=== PATIENT | male | born 1960 | race Caucasian/White ===

== ENCOUNTER 2018-03-04 16:20 | Emergency (ER) | payer OTHER, BC ==
[~2018-03-04] VITALS: Ht 190.5 cm; Wt 127.0 kg
[~2018-03-04 16:20] MED LIST: DICLOFENAC75 MG PO; FLEXERIL5 MG PO; FLONASE NASAL50 MCG; HYDROCO/APAP1 TA8 PO; LIDODERM5 % EX; LIDODERM5 % TD; LORCET10/650 PO; LORTAB 10-325 M1 TAB PO; LORTAB 1010 MG PO; LORTAB PO; LOTRISONE EX; MEDROL4 M1 PO; OMEPRAZOLE40 MG PO; PERCOCET 5/325M1 TAB PO; PERCOCET1 TA2 PO; PRILOSEC40 MG PO; TIZANIDINE HCL4 MG PO; TIZANIDINE4 MG PO
[2018-03-04] MEDS ORDERED: KEFLEX500 M1 PO (17:07)
[2018-03-04 17:15] VITALS: BP 168/74
== END 2018-03-04 17:15 | disposition home or self-care (01) | DRG 914 ==
LOC: ED 16:20
PROC: 0HQFXZZ Repair Right Hand Skin, External Approach (ICD-10-PCS; principal; 2018-03-04)
DX: S61.021A Laceration with foreign body of right thumb without damage to nail, initial encounter (principal); W45.8XXA Other foreign body or object entering through skin, initial encounter; Y92.89 Other specified places as the place of occurrence of the external cause; Y99.0 Civilian activity done for income or pay

== ENCOUNTER 2019-04-11 10:31 | Emergency (ER) | payer OTHER ==
[~2019-04-11] VITALS: Ht 190.5 cm; Wt 118.0 kg
[~2019-04-11 10:31] MED LIST changes: +KEFLEX500 M1 PO
[2019-04-11] MEDS ORDERED: GABAPENTIN100 MG PO (10:56)
[2019-04-11] MEDS ORDERED: ROPINIROLE HCL0.5 MG PO (10:57)
[2019-04-11] MEDS ORDERED: TIZANIDINE HCL2 M1 PO (10:57)
[2019-04-11] MEDS ORDERED: KEFLEX500 M1 PO (11:49)
[2019-04-11] MEDS ORDERED: BACTROBAN TOP (11:49)
[2019-04-11 12:28] VITALS: BP 124/68
== END 2019-04-11 12:35 | disposition home or self-care (01) | DRG 563 ==
LOC: ED 10:31
DX: S62.632A Displaced fracture of distal phalanx of right middle finger, initial encounter for closed fracture (principal); S62.634A Displaced fracture of distal phalanx of right ring finger, initial encounter for closed fracture; S61.312A Laceration without foreign body of right middle finger with damage to nail, initial encounter; S61.314A Laceration without foreign body of right ring finger with damage to nail, initial encounter; G62.9 Polyneuropathy, unspecified; F17.210 Nicotine dependence, cigarettes, uncomplicated; W23.0XXA Caught, crushed, jammed, or pinched between moving objects, initial encounter; Y93.89 Activity, other specified; Y99.0 Civilian activity done for income or pay

== ENCOUNTER 2019-09-06 11:00 | Emergency (ER) | payer BC ==
[~2019-09-06] VITALS: Ht 190.5 cm; Wt 113.0 kg
[~2019-09-06 11:00] MED LIST changes: +BACTROBAN TOP; +GABAPENTIN100 MG PO; +ROPINIROLE HCL0.5 MG PO; +TIZANIDINE HCL2 M1 PO
[2019-09-06 12:17] LABS: IMMATURE GRANULOCYTES 0.5 % (0.0-5.0); MEAN CORPUSCULAR HGB 20.2 pG CALC (26.0-32.0); MEAN CORPUSCULAR HGB CONC 28.2 g/L CALC (32.0-36.0); NEUT# 8.3 thou/uL (1.82-7.42); RED BLOOD COUNT 2.97 mill/uL (4.70-6.10)
[2019-09-06 12:30] LABS: HEMATOCRIT 21.3 % (39.0-50.0); MEAN CELL VOLUME 71.7 fL CALC (80.0-100.0)
[2019-09-06 12:36] LABS: ALBUMIN 2.7 g/dL (3.2-5.0); AMYLASE < 30 u/l (30-110); ANION GAP 13 (6-22 (CALC)); BUN 10 mg/dL (9-20); BUN/CREATININE RATIO 21 (12-20 (CALC)); CARBON DIOXIDE 25 mmol/l (22-30); CHLORIDE 99 mmol/l (95-108); CREATININE 0.5 mg/dL (0.7-1.3); GFR > 60 ML/MIN (>=60 (CALC)); GFR FOR AFR.AMER. > 60 ML/MIN (>=60 (CALC)); LIPASE 43 u/l (23-300); TOTAL PROTEIN 6.1 g/dL (6.3-8.2)
[2019-09-06 12:37] LABS: ALKALINE PHOSPHATASE 194 u/l (38-126); BILIRUBIN, TOTAL 0.8 mg/dL (0.0-1.4); SGOT/AST 87 u/l (17-59); SODIUM 132 mmol/l (137-146)
[2019-09-06] MEDS ORDERED: METFORMIN500 MG PO (13:19)
[2019-09-06 14:55] VITALS: BP 96/55
[2019-09-06 15:15] VITALS: BP 100/55
[2019-09-06 15:51] LABS: URINE BILIRUBIN - DIPSTICK NEGATIVE (NEGATIVE); URINE BLOOD DIPSTICK NEGATIVE (NEGATIVE); URINE COLOR DK. YELLOW; URINE GLUCOSE - DIPSTICK NEGATIVE (NEGATIVE); URINE KETONE NEGATIVE (NEGATIVE); URINE LEUK ESTERASE NEGATIVE (NEGATIVE); URINE NITRITE - DIPSTICK NEGATIVE (Negative); URINE PROTEIN - DIPSTICK NEGATIVE (NEG-TRACE); URINE SPECIFIC GRAVITY <=1.005
== END 2019-09-06 15:38 | disposition short-term general hospital (02) | DRG 812 ==
LOC: ED 11:00
DX: D64.9 Anemia, unspecified (principal); C78.7 Secondary malignant neoplasm of liver and intrahepatic bile duct; D47.3 Essential (hemorrhagic) thrombocythemia
CPT/HCPCS: P9016; Q9967

== ENCOUNTER 2021-03-22 13:57 | Emergency (ER) | payer BC ==
[~2021-03-22] VITALS: Ht 190.5 cm; Wt 115.0 kg
[~2021-03-22 13:57] MED LIST changes: +METFORMIN500 MG PO
[2021-03-22 15:23] LABS: ACT PARTIAL THROMBO TIME 30.5 SECONDS (20.0-32.5); ALBUMIN 2.7 g/dL (3.2-5.0); ALKALINE PHOSPHATASE 83 u/l (38-126); ANION GAP 12 (6-22 (CALC)); BILIRUBIN, TOTAL 1.5 mg/dL (0.0-1.4); BUN 25 mg/dL (8-23); BUN/CREATININE RATIO 44 (12-20 (CALC)); CARBON DIOXIDE 21 mmol/l (22-30); CHLORIDE 97 mmol/l (95-108); CREATININE 0.6 mg/dL (0.7-1.3); GFR > 60 ML/MIN (>=60 (CALC)); GFR FOR AFR.AMER. > 60 ML/MIN (>=60 (CALC)); INTERNATIONAL NORMALIZED RATIO 1.2 RATIO (0.7-1.3); LIPASE 103 u/l (23-300); POTASSIUM 4.7 mmol/l (3.5-5.1); PROTHROMBIN TIME 12.3 SECONDS (9.0-12.5); SGOT/AST 24 u/l (19-48); SODIUM 125 mmol/l (137-146); TOTAL PROTEIN 5.8 g/dL (6.3-8.2)
[2021-03-22 15:27] LABS: D-DIMER 2.24 mg/L (0.19-0.60)
[2021-03-22 15:28] LABS: HEMOGLOBIN 8.3 g/dl (14.0-18.0); IMMATURE GRANULOCYTES 6.9 % (0.0-5.0); MEAN CORPUSCULAR HGB 24.3 pG CALC (26.0-32.0); MEAN CORPUSCULAR HGB CONC 28.6 g/dL CAL (32.0-36.0); NEUT# 0.06 thou/uL (1.82-7.42); RED BLOOD COUNT 3.41 mill/uL (4.70-6.10); RED CELL DISTRI WIDTH 20.4 % (11.5-15.5)
[2021-03-22 15:32] LABS: URINE BILIRUBIN - DIPSTICK NEGATIVE (NEGATIVE); URINE BLOOD DIPSTICK NEGATIVE (NEGATIVE); URINE COLOR YELLOW; URINE GLUCOSE - DIPSTICK >=1000 mg/dL (NEGATIVE); URINE KETONE NEGATIVE (NEGATIVE); URINE LEUK ESTERASE NEGATIVE (NEGATIVE); URINE PROTEIN - DIPSTICK TRACE mg/dL (NEG-TRACE); URINE SPECIFIC GRAVITY 1.015
[2021-03-22 15:36] LABS: URINE NITRITE - DIPSTICK NEGATIVE (Negative)
[2021-03-22 18:11] VITALS: BP 132/78
== END 2021-03-22 15:45 | disposition short-term general hospital (02) | DRG 194 ==
LOC: ED 13:57
DX: J18.9 Pneumonia, unspecified organism (principal); J91.0 Malignant pleural effusion; C16.9 Malignant neoplasm of stomach, unspecified; C78.7 Secondary malignant neoplasm of liver and intrahepatic bile duct; C78.00 Secondary malignant neoplasm of unspecified lung; D64.9 Anemia, unspecified; D70.9 Neutropenia, unspecified; G62.9 Polyneuropathy, unspecified; Z20.822 Contact with and (suspected) exposure to COVID-19